=== PATIENT | male | born 1985 | race African-American/Black ===

== ENCOUNTER 2016-09-09 17:18 | Emergency (ER) | payer SELFPAY ==
[~2016-09-09 17:18] MED LIST: AMOXICILLIN500 M1 PO; NO HOME MEDICATION XX; NORCO 5/325 TAB1 TAB PO; PERCOCET 5-3251 EACH PO
[2016-09-09] MEDS ORDERED: PREDNISONE10 M1 PO (18:17)
== END 2016-09-09 18:53 ==
LOC: EDMED 17:18
DX: S16.1XXA Strain of muscle, fascia and tendon at neck level, initial encounter (principal); Z88.6 Allergy status to analgesic agent; Z98.890 Other specified postprocedural states; X58.XXXA Exposure to other specified factors, initial encounter
CPT/HCPCS: J1100; J2360